=== PATIENT | male | born 1970 | race Caucasian/White ===

== ENCOUNTER 2018-05-07 19:40 | Inpatient (IN) | payer OTHER ==
[2018-05-07 20:16] VITALS: BMI 20.2
--- NOTE | 2018-05-07 20:54 | HP ---
CIWA Score - CIWA Score Nausea/Vomitin-Int. Nausea w/Dry Heave Muscle Tremors: 4-Moderate,w/Arms Extend Anxiety: 3 Agitation: 3 Paroxysmal Sweats: 3 Orientation: 0-Oriented Tacttile Disturbances: 2-Mild Itch/Numbness/Burn (hand and feet b/l) Auditory Disturbances: 0-None Visual Disturbances: 0-None Headache: 2-Mild CIWA-Ar Total Score: 21 Admission ROS S - HPI Chief Complaint: alcohol withdrawal symptoms Allergies/Adverse Reactions: Allergies Allergy/AdvReac Type Severity Reaction Status Date / Time No Known Allergies Allergy Verified 05/07/18 20:50 History of Present Illness: 47 yo male with hx of alcohol dependence is here seeking detox. Patient was referred by [facility] where he was evaluated earlier today for alcohol intoxication. Reports no prior hx of ETOH detox treatment. PMHX: HTN ( no meds), HDL, GERD, and depression. Denies suicidal / homicidal ideation or hx suicide attempts. Reports hx of auditory hallucinations when intoxicated. Reports hx of frequent blackouts with last attempt three days ago. Reports no significant period of sobriety. Exam Limitations: No Limitations - Ebola screening Have you been sick,other than usual withdrawal symptoms: No - Review of Systems Constitutional: Chills, Diaphoresis, Loss of Appetite, Unintentional Wgt. Loss EENT: reports: No Symptoms Reported Respiratory: reports: No Symptoms reported Cardiac: reports: No Symptoms Reported GI: reports: Diarrhea, Nausea, Poor Appetite, Poor Fluid Intake, Vomiting, Indigestion : reports: Frequency Musculoskeletal: reports: No Symptoms Reported Integumentary: reports: No Symptoms Reported Neuro: reports: Numbness (both hands and feet) Endocrine: reports: Increased Thirst Hematology: reports: No Symptoms Reported Psychiatric: reports: Orientated x3, Depressed Other Systems: Reviewed and Negative Patient History - Patient Medical History Hx Anemia: No Hx Asthma: No Hx Chronic Obstructive Pulmonary Disease (COPD): No Hx Cancer: No Hx Cardiac Disorders: No Hx Congestive Heart Failure: No Hx Hypertension: Yes Hx Hypercholesterolemia: Yes Hx Pacemaker: No HX Cerebrovascular Accident: No Hx Seizures: No Hx Dementia: No Hx Diabetes: No Hx Gastrointestinal Disorders: Yes (GERD ) Hx Liver Disease: No Hx Genitourinary Disorders: No Hx Sexually Transmitted Disorders: No (no prior hx ) Hx Renal Disease (ESRD): No Hx Thyroid Disease: No Hx Human Immunodeficiency Virus (HIV): No (last tested four weeks ago, neg results ) Hx Hepatitis C: No Hx Depression: Yes Hx Suicide Attempt: No Hx Bipolar Disorder: No Hx Schizophrenia: No - Patient Surgical History Past Surgical History: No Hx Neurologic Surgery: No Hx Cataract Extraction: No Hx Cardiac Surgery: No Hx Lung Surgery: No Hx Breast Surgery: No Hx Breast Biopsy: No Hx Abdominal Surgery: No Hx Appendectomy: No Hx Cholecystectomy: No Hx Genitourinary Surgery: No Hx Section: No Hx Orthopedic Surgery: No Hx Hysterectomy: No Anesthesia Reaction: No - PPD History Previous Implant?: No Documented Results: Negative w/o proof Implanted On Prior [facility] Admission?: No PPD to be Administered?: Yes - Smoking Cessation Smoking history: Never smoked Have you smoked in the past 12 months: No Hx Chewing Tobacco Use: No Initiated information on smoking cessation: No - Substance & Tx. History Hx Alcohol Use: Yes Hx Substance Use: Yes Substance Use Type: Alcohol Hx Substance Use Treatment: No - Substances Abused Alcohol Route: Oral Frequency: Daily Amount used: 15 x 24 oz beers Age of first use: 26 Date of Last Use: 05/06/18 Family Disease History - Family Disease History Family History: Unable to Obtain Admission Physical Exam B[facility] - Vital Signs Vital Signs: Vital Signs - 24 hr 05/07/18 20:14 Temperature 98.9 F Pulse Rate 102 H Respiratory 20 Rate Blood Pressure 143/83 - Physical General Appearance: Yes: Disheveled, Mild Distress, Sweating, Anxious, Other ( malodorous) HEENTM: Yes: EOMI, Hearing grossly Normal, Normal ENT Inspection, Normocephalic , Normal Voice, MAGALYS, Pharynx Normal, Tm's normal Respiratory: Yes: Chest Non-Tender, Lungs Clear, Normal Breath Sounds, No Respiratory Distress, No Accessory Muscle Use Neck: Yes: Within Normal Limits Breast: Yes: Breast Exam Deferred Cardiology: Yes: Within Normal Limits Abdominal: Yes: Within Normal Limits Genitourinary: Yes: Within Normal Limits Back: Yes: Normal Inspection Musculoskeletal: Yes: full range of Motion, Gait Steady Extremities: Yes: Normal Capillary Refill, Normal Inspection, Normal Range of Motion, Non-Tender Neurological: Yes: metal mixer II-XII NML intact, Fully Oriented, Motor Strength 5/5, Depressed Affect Integumentary: Yes: Normal Color, Warm, Diaphoresis Lymphatic: Yes: Within Normal Limits - Diagnostic (1) Alcohol dependence with withdrawal Current Visit: Yes Status: Acute Qualifiers: Complication of substance-induced condition: uncomplicated Qualified Code(s ): F10.230 - Alcohol dependence with withdrawal, uncomplicated (2) Hypertension Current Visit: Yes Status: Chronic Qualifiers: Hypertension type: essential hypertension Qualified Code(s): I10 - Essential (primary) hypertension (3) GERD (gastroesophageal reflux disease) Current Visit: Yes Status: Chronic Qualifiers: Esophagitis presence: without esophagitis Qualified Code(s): K21.9 - Gastro -esophageal reflux disease without esophagitis Cleared for Admission B[facility] - Detox or Rehab S Level of Care: Medically Managed Detox Regimen/Protocol: Librium BHS Breath Alcohol Content Breath Alcohol Content: 0 Urine Drug Screen - Results Drug Screen Negative: Yes
[2018-05-07] MEDS ORDERED: LOPERAMIDE HCL 2 MG CAPSULE PO PRN (21:01)
[2018-05-07] MEDS ORDERED: hydrOXYzine PAMOATE 50 MG CAPSULE (FP) PO PRN (21:01)
[2018-05-07] MEDS ORDERED: MAGNESIUM HYDROX 2400MG/30ML ORAL SUSPENSION 30 ML CUP PO PRN (21:01)
[2018-05-07] MEDS ORDERED: guaiFENesin/D-METHORPHAN HB 10 ML UNIT-DOSE CUPS PO PRN (21:01)
[2018-05-07] MEDS ORDERED: MENTHOL/PHENOL 1 EACH UD MM PRN (21:01)
[2018-05-07] MEDS ORDERED: P-EPHED 60MG/TRIPROLIDI 2.5MG TABLET PO PRN (21:01)
[2018-05-07] MEDS ORDERED: MAGNESIUM CITRATE 300 ML BOTTLE PO PRN (21:01)
[2018-05-07] MEDS ORDERED: chlordiazePOXIDE HCL 25 MG CAPSULE PO ONE (21:15)
[2018-05-07] MEDS: chlordiazePOXIDE HCL 25 MG CAPSULE PO SCH (22:14)
[2018-05-07] MEDS: THIAMINE HCL 100 MG TABLET (FP) PO SCH (22:14)
[2018-05-07 23:30] LABS: URINE APPEARANCE CLEAR; URINE BILIRUBIN NEGATIVE (<2.0 mg/dL); URINE COLOR STRAW; URINE GLUCOSE (UA) NEGATIVE (NEGATIVE); URINE KETONE NEGATIVE (NEGATIVE); URINE LEUK ESTERASE NEGATIVE (NEGATIVE); URINE NITRITE NEGATIVE (NEGATIVE); URINE PROTEIN NEGATIVE (NEGATIVE); URINE UROBILINOGEN NEGATIVE mg/dL (0.2-1.0)
[2018-05-08] MEDS: chlordiazePOXIDE HCL 25 MG CAPSULE PO SCH ×4 (06:12→22:04)
[2018-05-08 09:57] LABS: HEMATOCRIT 39.4 % (35.4-49); MCH 29.7 pg (25.7-33.7); MEAN PLT VOLUME 8.5 fl (7.5-11.1); PLATELET COUNT 63 K/MM3 (134-434); RBC 4.38 M/mm3 (4.00-5.60); RDW 16.1 % (11.9-15.9); WHITE BLOOD COUNT 4.9 K/mm3 (4.0-10.0)
[2018-05-08 10:15] LABS: CHLORIDE 103 mmol/L (98-107); POTASSIUM 3.1 mmol/L (3.5-5.1); SODIUM 142 mmol/L (136-145)
[2018-05-08] MEDS: PANTOPRAZOLE 20 MG TABLET (FP) PO SCH (10:17)
[2018-05-08] MEDS: PRENATAL VITAMINS W/ FOLIC ACID TABLET (FP) PO SCH (10:17)
[2018-05-08] MEDS: IBUPROFEN 400 MG TABLET (FP) PO PRN (10:19)
--- NOTE | 2018-05-08 10:24 | PN ---
S CIWA - CIWA Score Nausea/Vomitin-No Nausea/No Vomiting Muscle Tremors: 5 Anxiety: 4-Mod. Anxious/Guarded Agitation: 4-Moderately Restless Paroxysmal Sweats: 1-Minimal Palms Moist Orientation: 0-Oriented Tacttile Disturbances: 0-None Auditory Disturbances: 0-None Visual Disturbances: 0-None Headache: 0-None Present CIWA-Ar Total Score: 14 BHS Progress Note (SOAP) Subjective: PT STATES "NO TOO MUCH GOOD" --ANXIETY,TREMORS,SWEATS,CHILLS,FATIGUE. Objective: 05/08/18 10:23 Vital Signs 05/08/18 05/08/18 05/08/18 03:30 06:30 06:33 Temperature 97.6 F Pulse Rate 95 H Respiratory 18 18 18 Rate Blood Pressure 116/65 Laboratory Tests 05/07/18 05/08/18 05/08/18 22:15 07:20 07:20 WBC 4.9 RBC 4.38 Hgb 13.0 Hct 39.4 MCV 90.0 MCH 29.7 MCHC 33.0 RDW 16.1 H MPV 8.5 Sodium 142 Potassium 3.1 L Chloride 103 Urine Color Straw Urine Appearance Clear Urine pH 7.0 Ur Specific [place] 1.002 Urine Protein Negative Urine Glucose (UA) Negative Urine Ketones Negative Urine Blood Negative Urine Nitrite Negative Urine Bilirubin Negative Urine Urobilinogen Negative Ur Leukocyte Esterase Negative OTHER LABS PENDING Assessment: 05/08/18 10:24 WITHDRAWAL SX Plan: CONTINUE DETOX INCREASE PO FLUIDS
[2018-05-08 10:30] LABS: ALBUMIN 3.5 g/dl (3.4-5.0); ALK PHOS 90 U/L (45-117); ANION GAP 9 MMOL/L (8-16); BILIRUBIN,TOTAL 0.9 mg/dL (0.2-1.0); BLOOD UREA NITROGEN 7 mg/dL (7-18); CALCIUM 8.3 mg/dL (8.5-10.1); CO2 30 mmol/L (21-32); CREATININE 0.5 mg/dL (0.7-1.3); GLUCOSE,RANDOM 100 mg/dL (74-106); SGOT/AST 62 U/L (15-37); SGPT/ALT 48 U/L (12-78); TOT PROT 6.6 g/dl (6.4-8.2)
[2018-05-08] MEDS: ACETAMINOPHEN 325 MG TABLET (FP) PO PRN (14:20)
[2018-05-08] MEDS: chlordiazePOXIDE HCL 25 MG CAPSULE PO PRN (14:22)
--- NOTE | 2018-05-08 15:03 | EKG ---
Test Reason : Blood Pressure : / mmHG Vent. Rate : 092 BPM Atrial Rate : 092 BPM P-R Int : 142 ms QRS Dur : 090 ms QT Int : 360 ms P-R-T Axes : 039 021 022 degrees QTc Int : 445 ms NORMAL SINUS RHYTHM NORMAL ECG NO PREVIOUS ECGS AVAILABLE Confirmed by VIDYA RECINOS MD ([id number]) on 05/08/2018 3:03:13 PM Referred By: Sofía Arevalo Confirmed By:VIDYA RECINOS MD
--- NOTE | 2018-05-08 16:55 | CONSULT ---
[facility] Psychiatric Consult - Data Date of interview: 05/07/18 Admission source: [facility] Identifying data: Patient is a 47 year old male, father of one, domiciled, and currently unemployed. Pt. recently lost his job. This is patient's first admission to detox at [facility]. Pt. admitted to for alcohol dependence. Substance Abuse History: Smoking Cessation. Smoking history: Never smoked. Have you smoked in the past 12 months: No. Hx Chewing Tobacco Use: No. Initiated information on smoking cessation: No. - Substance & Tx. History. Hx Alcohol Use: Yes. Hx Substance Use: Yes. Substance Use Type: Alcohol. Hx Substance Use Treatment: No. - Substances Abused. Alcohol. Route: Oral. Frequency: Daily. Amount used: 15 x 24 oz beers. Age of first use: 26. Date of Last Use: 05/06/18 Medical History: hypertension, GERD Psychiatric History: Patient reports one psychiatric hospitalization several years ago at [facility] for depression. Pt unable to recall the psychotropic medication he was prescribed. Pt. denies h/o outpatient psychiatric services and suicide attempt. Pt.currently reports poor sleep. Physical/Sexual Abuse/Trauma History: denies Mental Status Exam - Mental Status Exam Alert and Oriented to: Time, Place, Person Cognitive Function: Good Patient Appearance: Well Groomed Mood: Anxious (withdrawal), Euthymic Affect: Mood Congruent Patient Behavior: Cooperative Speech Pattern: Appropriate (citizen of [place] speaking) Voice Loudness: Moderately Soft/Quiet Thought Process: Goal Oriented Thought Disorder: Not Present Hallucinations: Denies Suicidal Ideation: Denies Homicidal Ideation: Denies Insight/Judgement: Poor Sleep: Poorly Appetite: Fair Muscle strength/Tone: Normal Gait/Station: Normal Psychiatric Findings - Problem List ([place] 1, 2,3) (1) Insomnia Current Visit: Yes Status: Acute (2) Alcohol dependence with withdrawal Current Visit: Yes Status: Acute Qualifiers: Complication of substance-induced condition: uncomplicated Qualified Code(s ): F10.230 - Alcohol dependence with withdrawal, uncomplicated - Initial Treatment Plan Initial Treatment Plan: Psychoeducation provided. Detoxification in progress. Melatonin 5mg ordered by OUTPATIENT CODING SPECIALIST. Pt. informed. Observation.
[2018-05-08] MEDS: THIAMINE HCL 100 MG TABLET (FP) PO SCH (22:04)
[2018-05-08] MEDS: MELATONIN 5 MG TABLETS PO PRN (22:04)
[2018-05-09] MEDS: chlordiazePOXIDE HCL 25 MG CAPSULE PO SCH ×3 (05:36→17:28)
[2018-05-09] MEDS: PANTOPRAZOLE 20 MG TABLET (FP) PO SCH (09:18)
[2018-05-09] MEDS: PRENATAL VITAMINS W/ FOLIC ACID TABLET (FP) PO SCH (10:19)
[2018-05-09] MEDS: ACETAMINOPHEN 325 MG TABLET (FP) PO PRN ×2 (14:00→20:36)
[2018-05-09] MEDS: MAG HYDROX/AL HYDROX/SIMETH 30 ML UNIT-DOSE CUP PO PRN (14:00)
[2018-05-09] MEDS: IBUPROFEN 400 MG TABLET (FP) PO PRN (15:11)
--- NOTE | 2018-05-09 16:53 | PN ---
B[facility] Progress Note (SOAP) Subjective: Sweating, Body Aches, Tremors, H/A, Nausea, Stomach Cramping. Objective: PATIENT A & O X 2 (UNCERTAIN ABOUT CURRENT DAY / DATE). PATIENT OBSERVED AMBULATING ON UNIT. NO ACUTE DISTRESS. 05/09/18 16:51 Vital Signs Temperature 96.7 F L 05/09/18 14:10 Pulse Rate 91 H 05/09/18 14:10 Respiratory Rate 20 05/09/18 14:10 Blood Pressure 138/91 05/09/18 14:10 O2 Sat by Pulse Oximetry (%) Laboratory Tests 05/07/18 05/08/18 05/08/18 22:15 07:20 07:20 WBC 4.9 RBC 4.38 Hgb 13.0 Hct 39.4 MCV 90.0 MCH 29.7 MCHC 33.0 RDW 16.1 H Plt Count 63 L MPV 8.5 Sodium 142 Potassium 3.1 L Chloride 103 Carbon Dioxide 30 Anion Gap 9 BUN 7 Creatinine 0.5 L Creat Clearance w eGFR > 60 Random Glucose 100 Calcium 8.3 L Total Bilirubin 0.9 AST 62 H ALT 48 Alkaline Phosphatase 90 Total Protein 6.6 Albumin 3.5 Urine Color Straw Urine Appearance Clear Urine pH 7.0 Ur Specific [place] 1.002 Urine Protein Negative Urine Glucose (UA) Negative Urine Ketones Negative Urine Blood Negative Urine Nitrite Negative Urine Bilirubin Negative Urine Urobilinogen Negative Ur Leukocyte Esterase Negative RPR Titer 05/08/18 07:20 WBC RBC Hgb Hct MCV MCH MCHC RDW Plt Count MPV Sodium Potassium Chloride Carbon Dioxide Anion Gap BUN Creatinine Creat Clearance w eGFR Random Glucose Calcium Total Bilirubin AST ALT Alkaline Phosphatase Total Protein Albumin Urine Color Urine Appearance Urine pH Ur Specific [place] Urine Protein Urine Glucose (UA) Urine Ketones Urine Blood Urine Nitrite Urine Bilirubin Urine Urobilinogen Ur Leukocyte Esterase RPR Titer Nonreactive LABS NOTED. Assessment: 05/09/18 16:52 WITHDRAWAL SYMPTOMS. HYPOKALEMIA. THROMBOCYTOPENIA. 05/09/18 16:55 Plan: CONTINUE DETOX. PRN FLEXERIL FOR BODY ACHES / MUSCLE SPASMS.
[2018-05-09] MEDS ORDERED: POTASSIUM CHLORIDE TABS 20 MEQ TABLET.ER (FP) PO ONE (17:15)
[2018-05-09] MEDS: chlordiazePOXIDE HCL 25 MG CAPSULE PO PRN (20:38)
[2018-05-09] MEDS: METHYL SALICYLATE/MENTHOL OINT 30 GM TUBE TP SCH (22:24)
[2018-05-09] MEDS: THIAMINE HCL 100 MG TABLET (FP) PO SCH (22:24)
[2018-05-09] MEDS: CLOTRIMAZOLE 1% CREAM 15 GM TUBE TP SCH (22:24)
[2018-05-09] MEDS: chlordiazePOXIDE 5 MG CAPSULE PO SCH (22:24)
[2018-05-09] MEDS: MELATONIN 5 MG TABLETS PO PRN (23:17)
[2018-05-10] MEDS: chlordiazePOXIDE 5 MG CAPSULE PO SCH ×3 (05:22→17:22)
[2018-05-10] MEDS: ACETAMINOPHEN 325 MG TABLET (FP) PO PRN (05:24)
[2018-05-10] MEDS: CYCLOBENZAPRINE HCL 10 MG TABLET (FP) PO PRN ×2 (06:10→22:13)
[2018-05-10] MEDS: POTASSIUM CHLORIDE TABS 20 MEQ TABLET.ER (FP) PO SCH ×2 (10:22→17:22)
[2018-05-10] MEDS: PRENATAL VITAMINS W/ FOLIC ACID TABLET (FP) PO SCH (10:22)
[2018-05-10] MEDS: CLOTRIMAZOLE 1% CREAM 15 GM TUBE TP SCH ×2 (10:22→22:09)
[2018-05-10] MEDS: PANTOPRAZOLE 20 MG TABLET (FP) PO SCH (10:22)
[2018-05-10] MEDS: METHYL SALICYLATE/MENTHOL OINT 30 GM TUBE TP SCH ×2 (10:22→22:15)
[2018-05-10] MEDS: IBUPROFEN 400 MG TABLET (FP) PO PRN (10:26)
[2018-05-10] MEDS: MAG HYDROX/AL HYDROX/SIMETH 30 ML UNIT-DOSE CUP PO PRN (12:12)
--- NOTE | 2018-05-10 13:26 | PN ---
[facility] Progress Note Note: Called by staff to see patient. He report nausea and some vomiting. Not witnessed. Here for alcohol detox, stated 05/07. He describes drinking coffee and then feeling nausea. He went to the bathroom but didn't vomit. Reports having a headache. No acute withdrawal symptoms, denies tremors, chills, sweating. No h/o seizure of DT. Vital Signs - 24 hr 05/09/18 05/09/18 05/09/18 14:10 18:01 22:26 Temperature 96.7 F L 96.4 F L 98.3 F Pulse Rate 91 H 84 95 H Respiratory 20 16 18 Rate Blood Pressure 138/91 123/77 122/75 05/10/18 05/10/18 05/10/18 00:30 03:30 06:21 Temperature 97.6 F Pulse Rate 87 Respiratory 18 18 16 Rate Blood Pressure 132/83 05/10/18 05/10/18 10:01 13:26 Temperature 97.3 F L 97.5 F L Pulse Rate 87 86 Respiratory 20 20 Rate Blood Pressure 131/80 131/83 VSS. Resting comfortably in bed. No diaphoresis, no tremor, no anxiety. AOx3. Nausea and headache. No vomiting. Probable withdrawal related but he does not seem to have any other overt signs of acute withdrawal and he is already at the end of his detox. Will prescribe Zofram PRN and tylenol for his hdache. Continue to monitor.
[2018-05-10] MEDS ORDERED: ONDANSETRON *ODT* 4 MG TABLET SL PRN (13:36)
[2018-05-10] MEDS: THIAMINE HCL 100 MG TABLET (FP) PO SCH (22:13)
[2018-05-10] MEDS: chlordiazePOXIDE HCL 10 MG CAPSULE PO SCH (22:13)
[2018-05-11] MEDS: chlordiazePOXIDE HCL 10 MG CAPSULE PO SCH (05:30)
[2018-05-11 06:28] VITALS: BP 113/72; PULSE 82; TEMP 98.1
--- NOTE | 2018-05-11 08:47 | DS ---
[facility] Detox Discharge Summary Admission Date: 05/07/18 Discharge Date: 05/11/18 - History Present History: Alcohol Dependence Pertinent Past History: 47 yo male with hx of alcohol dependence was here seeking detox. Pt completed detox protocol and will be going home today. - Physical Exam Results Vital Signs: Vital Signs Temperature 98.1 F 05/11/18 06:27 Pulse Rate 82 05/11/18 06:27 Respiratory Rate 18 05/11/18 06:27 Blood Pressure 113/72 05/11/18 06:27 O2 Sat by Pulse Oximetry (%) - Treatment Hospital Course: Detox Protocol Followed, Detoxed Safely, Responded well, Discharged Condition Good Patient has Accepted a Rehab Referral to: Pt will be continuing with [facility] as an outpt as needed - Medication Discharge Medications: Ambulatory Orders NK [No Known Home Medication] 05/07/18 - Diagnosis (1) Alcohol dependence with withdrawal Current Visit: Yes Status: Acute Qualifiers: Complication of substance-induced condition: uncomplicated Qualified Code(s ): F10.230 - Alcohol dependence with withdrawal, uncomplicated - AMA Did Patient Leave Against Medical Advice: No
--- NOTE | 2018-05-11 08:50 | PN ---
BHS Progress Note (SOAP) Subjective: pt states going home today. No complaints Vs Vital Signs - 24 hr 05/10/18 05/10/18 05/10/18 10:01 13:26 17:41 Temperature 97.3 F L 97.5 F L 97.1 F L Pulse Rate 87 86 80 Respiratory 20 20 16 Rate Blood Pressure 131/80 131/83 115/74 05/10/18 05/11/18 05/11/18 21:15 00:30 06:27 Temperature 97.2 F L 98.1 F Pulse Rate 88 82 Respiratory 18 18 18 Rate Blood Pressure 125/78 113/72 Ass: alcohol detox protocol completed, f/u as outpt
[2018-05-11] MEDS: CLOTRIMAZOLE 1% CREAM 15 GM TUBE TP SCH (10:22)
[2018-05-11] MEDS: PANTOPRAZOLE 20 MG TABLET (FP) PO SCH (10:22)
[2018-05-11] MEDS: METHYL SALICYLATE/MENTHOL OINT 30 GM TUBE TP SCH (10:22)
[2018-05-11] MEDS: PRENATAL VITAMINS W/ FOLIC ACID TABLET (FP) PO SCH (10:22)
[2018-05-11] MEDS: POTASSIUM CHLORIDE TABS 20 MEQ TABLET.ER (FP) PO SCH (10:22)
== END 2018-05-11 11:07 | disposition home or self-care (01) | DRG 775 ==
LOC: YASAS 19:40 → Y3N 21:11
PROC: HZ2ZZZZ Detoxification Services for Substance Abuse Treatment (ICD-10-PCS; principal; 2018-05-07)
DX: F10.230 Alcohol dependence with withdrawal, uncomplicated (principal); F32.9 Major depressive disorder, single episode, unspecified; G47.00 Insomnia, unspecified; I10 Essential (primary) hypertension; K21.9 Gastro-esophageal reflux disease without esophagitis; D69.6 Thrombocytopenia, unspecified; D72.819 Decreased white blood cell count, unspecified
CPT/HCPCS: 36415; 80053; 81003; 85027; 86593; 93005; 93010; Q0162